=== PATIENT | female | born 1990 | race African-American/Black ===

== ENCOUNTER 2020-08-29 10:22 | Emergency (ER) | payer OTHER ==
[2020-08-29] MEDS ORDERED: Fentanyl 100 MCG/2 ML VIAL ONE (10:55)
[2020-08-29] MEDS ORDERED: Ketorolac Tromethamine 30 MG/ML VIAL ONE (10:55)
[2020-08-29 11:48] LABS: BHCG - Serum Negative (NEGATIVE); Pregs Control Background? CLEAR/WHITE (CLR/WHITE); Pregs Control Bar Appear? YES (CONTROL BAR)
--- NOTE | 2020-08-29 13:37 | CT ---
CT LUMBAR SPINE 08/29/20 PROVIDED CLINICAL HISTORY: Back pain. FINDINGS: No comparisons. Five nonribbearing lumbar type vertebral bodies are present. Lumbar alignment appears normal. Vertebr al body heights and intervertebral discs space heights appear preserved. There is no evidence for fra cture. Partially visualized nonspecific free pelvic fluid, possibly physiologic. There is a central d isc herniation at L4-5 with potential for moderate central canal stenosis. No significant foraminal n arrowing or additional significant central canal stenosis is evident. IMPRESSION: 1. No evidence for fracture or traumatic subluxation. 2. L4-5 disc herniation as described. POS: [facility]
== END 2020-08-29 14:07 | disposition home or self-care (01) ==
LOC: ERS 10:22
DX: M54.5 Low back pain (principal)
CPT/HCPCS: 72131; 84703; 96374; 96375; J1885; J3010